=== PATIENT | female | born 1965 | race Caucasian/White ===

== ENCOUNTER 2018-10-03 00:32 | Emergency (ER) | payer BC ==
--- NOTE | 2018-10-03 00:59 | EDPHY ---
H & P Stated Complaint: fell, facial injury lac Time Seen by Provider: 10/03/18 00:45 HPI/ROS: CHIEF COMPLAINT: Facial injury, left hand and right knee injury HISTORY OF PRESENT ILLNESS: 53 year old female arrives via private vehicle complaining of headache. She had been at a [place] party this evening, drinking alcohol, was getting out of an [employer] when she tripped and fell impacting her right frontal region as well as left dorsal hand and right knee. No loss of consciousness. Positive alcohol use. No midline C-spine pain. No peripheral paresthesia, weakness, numbness. No abdominal pain or trauma no back pain or trauma. No nausea or vomiting. Positive right knee abrasion with no underlying osseous discomfort, full pain- free range of motion. Full weight-bearing. Positive left dorsal hand abrasion. REVIEW OF SYSTEMS: 10 systems reviewed and negative with the exception of the elements mentioned in the history of present illness PAST MEDICAL/SURGICAL HISTORY: no anticoagulant use, no relevant medical/ surgical history. Tetanus up-to-date. SOCIAL HISTORY: denies alcohol use at time of incident PHYSICAL EXAM 1) GENERAL: Well-developed, well-nourished, alert and oriented. Appears to be in no acute distress. Answering questions appropriately. 2) HEAD: Normocephalic, right frontal abrasion and 2 cm laceration to the lateral eyebrow region. 3) HEENT: Pupils equal, round, reactive to light bilaterally. Negative Horners. Nasopharynx, oropharynx, clear. No deformity or angulation of nose. No septal hematoma. No rhinorrhea. No oral trauma. Ears bilaterally with normal tympanic membranes. No hemotympanum. No fluid or blood in the external auditory canal. No raccoon eyes. No Jacques sign. Teeth are normally aligned with no gross malocclusion, TMJ bilaterally nontender, facial bones nontender including the zygomatic arch, maxilla mandible. 4) NECK: No cervical collar is on. Posterior cervical spine is nontender, no stepoff, no effusion. Full range of motion which does not elicit any midline cervical spine pain, no posterior midline tenderness, no step-off. 5) LUNGS: Clear to auscultation bilaterally, no wheezes, no rhonchi, no retractions. No obvious signs of trauma. No chest wall pain. No flaring, no grunting. Moving symmetrically. No crepitus. 6) HEART: [Regular rate and rhythm, 7) ABDOMEN: No guarding, no rebound, no focal tenderness, no peritoneal signs, no signs of trauma, no ecchymosis 8) MUSCULOSKELETAL: Left upper extremity: Dorsal left hand overlying the 4th and 5th MC P he abrasion and 2 cm laceration. Extensor function at all digits is intact. No shortening no malrotation. No foreign bodies. Full sensation distally. Right lower extremity: Abrasion right anterior knee with no underlying patellar discomfort, full pain-free range of motion, full weight-bearing. Otherwise, Moving all extremities, no focal areas of tenderness, no obvious trauma. 9) BACK: No midline vertebral tenderness, no fluctuance, no step-off, no obvious trauma, no visual or palpable abnormality. 10) SKIN: forehead laceration DIFFERENTIAL DIAGNOSIS: Not necessarily in any particular order, my differential diagnosis includes, but is not limited to, concussion, skull fracture, intraparenchymal contusion, subarachnoid, subdural and epidural hematoma. The patient understands that this diagnosis is provisional and can never be 100% accurate. - Personal History Current Tetanus Diphtheria and Acellular Pertussis (TDAP): Yes - Medical/Surgical History Hx Asthma: No Hx Chronic Respiratory Disease: No Hx Diabetes: No Hx Cardiac Disease: No Hx Renal Disease: No Hx Cirrhosis: No Hx Alcoholism: No Hx HIV/AIDS: No Hx Splenectomy or Spleen Trauma: No Other PMH: B OOphrectomy; hysterctomy; DVT; microscopic colitis; Gherardia; noncompaction of the myocardium; infectious colitis; - Social History Smoking Status: Former smoker Constitutional: Initial Vital Signs Temperature (C) 36.3 C 10/03/18 00:36 Heart Rate 67 10/03/18 00:36 Respiratory Rate 18 10/03/18 00:36 Blood Pressure 107/77 10/03/18 00:36 O2 Sat (%) 97 10/03/18 00:36 O2 Delivery Mode Room Air Allergies/Adverse Reactions: fentanyl Allergy (Verified 10/03/18 00:36) Other-Enter Comments Home Medications: Medication Instructions Recorded Carvedilol Phosphate [Coreg Cr] 40 mg PO DAILY 07/18/15 Estradiol [Vivelle-Dot 0.075MG (*)] 0.075 mg TD MoFr@0800 07/18/15 Sertraline HCl [Zoloft 50mg (*)] 50 mg PO DAILY 07/18/15 Zolpidem Tartrate [Ambien 10 mg] 10 mg PO HS PRN 07/18/15 CLONAZEPAM 07/30/16 Singulair 07/30/16 Wellbutrin Sr 07/30/16 Medical Decision Making Procedures: Laceration 1 Procedure: Laceration repair with tissue adhesive Verbal consent was obtained from the patient. The laceration on the right lateral eyebrow was anesthetized with 1% lidocaine with epinephrine. The wound was scrubbed and explored to its base with a gloved finger. No foreign body seen , no foreign bodies palpated. There were no deep structures involved. The wound was repaired with tissue adhesive. The procedure was performed by myself. Patient has been informed that scarring will occur, although efforts have been made to minimize this. Laceration 2. Procedure: Laceration repair. I explained the indications, risks and benefits for both laceration repair and anesthetic administration. Verbal consent was obtained from the patient. The laceration on the left hand was anesthetized using 0.5% bupivicaine with epinephrine. After anesthetic administered the patient was observed for a period of time and had no apparent adverse effects. The wound was cleaned, prepped, draped in normal sterile fashion and explored to its base. No foreign body seen, no foreign bodies palpated. There were no deep structures involved. No tendon injury was identified. The wound was repaired with 5 simple interrupted 5 O Prolene sutures. The wound repair was simple. The procedure was performed by myself. Patient has been informed that scarring will occur, although efforts have been made to minimize this. ED Course/Re-evaluation: 12:58 a.m.: Head CT ordered in this patient for trauma for the following indication: severe headache. Will also obtain x-ray of the left hand. Right knee is nontender. Care of patient under supervision of secondary supervising physician Dr Stewart with whom I discussed case. Departure - Departure Disposition: Home, Routine, Self-Care Clinical Impression: Abrasion, right knee, initial encounter Head injury due to trauma Qualifiers: Encounter type: initial encounter Qualified Code(s): S09.90XA - Unspecified injury of head, initial encounter Laceration of forehead Qualifiers: Encounter type: initial encounter Qualified Code(s): S01.81XA - Laceration without foreign body of other part of head, initial encounter Laceration of left hand Qualifiers: Encounter type: initial encounter Foreign body presence: without foreign body Qualified Code(s): S61.412A - Laceration without foreign body of left hand, initial encounter Condition: Good Instructions: Abrasion (ED), Laceration (ED), Care For Your Stitches (ED), Skin Adhesive Care (ED), Head Injury (ED) Additional Instructions: ALTHOUGH THERE IS NO EVIDENCE OF SERIOUS HEAD INJURY AT THIS TIME, DELAYED SIGNS CAN APPEAR 24 TO 48 HOURS AFTER INJURY. PLEASE RETURN TO THE EMERGENCY DEPARTMENT (ED) IMMEDIATELY IF YOU HAVE INCREASED HEADACHE, PERSISTENT HEADACHE , VOMITING, WEAKNESS, CONFUSION OR VISUAL PROBLEMS. WE RECOMMEND THAT YOU DO NOT RESUME CONTACT SPORTS OR ACTIVITIES THAT TAKE COORDINATION OR BALANCE SUCH SKIING OR RIDING A BICYCLE UNTIL CLEARED TO DO SO BY YOUR DOCTOR OR BY A NEUROLOGIST. Referrals: Return, to the ER in 10 days for suture removal [Other] - As per Instructions
[2018-10-03] MEDS ORDERED: SKIN ADHESIVE (DERMABOND) 1 EACH TP ONE (01:34)
[2018-10-03 01:53] VITALS: BP 97/64
== END 2018-10-03 01:57 | disposition home or self-care (01) ==
DX: S01.81XA Laceration without foreign body of other part of head, initial encounter (principal); S61.412A Laceration without foreign body of left hand, initial encounter; S80.211A Abrasion, right knee, initial encounter; W01.0XXA Fall on same level from slipping, tripping and stumbling without subsequent striking against object, initial encounter; Y92.810 Car as the place of occurrence of the external cause; Y93.9 Activity, unspecified; Y99.9 Unspecified external cause status

== ENCOUNTER → 2018-11-20 | Outpatient (CLI) | payer BC | LOC: BMCIMAGING 15:08 | PROVIDERS: ATTEND Family Medicine | DX: J98.11 Atelectasis (principal) ==

== ENCOUNTER 2019-03-27 11:19 | Emergency (ER) | payer BC | END 2019-03-27 13:58 | disposition home or self-care (01) ==